=== PATIENT | male | born 1970 | race Caucasian/White ===

== ENCOUNTER → 2016-11-28 | Outpatient (CLI) | payer OTHER | LOC: FIMAGING 10:27 | PROVIDERS: ATTEND Orthopaedic Surgery Hand Surgery | DX: S53.431A Radial collateral ligament sprain of right elbow, initial encounter (principal); S53.441A Ulnar collateral ligament sprain of right elbow, initial encounter; M65.821 Other synovitis and tenosynovitis, right upper arm; M19.021 Primary osteoarthritis, right elbow; M25.421 Effusion, right elbow ==